=== PATIENT | female | born 1995 | race Caucasian/White ===

== ENCOUNTER 2017-03-17 13:59 | Emergency (ER) | payer MEDICAID, OTHER ==
[~2017-03-17] VITALS: Ht 157.5 cm; Wt 52.0 kg
[2017-03-17 14:03] VITALS: Ht 157.5 cm; Wt 52.0 kg
[2017-03-17] MEDS ORDERED: morphine 4 MG/ML VIAL IV STA (15:28)
[2017-03-17] MEDS ORDERED: ONDANSETRON 4 MG INJ IV STA (15:28)
[2017-03-17 16:22] LABS: ADD UMIC NO; URINE BILIRUBIN (Dip) NEGATIVE (NEGATIVE); URINE BLOOD (Dip) NEGATIVE (NEGATIVE); URINE COLOR LT. YELLOW (YELLOW); URINE GLUCOSE (Dip) NEGATIVE (NEGATIVE); URINE KETONES (Dip) NEGATIVE (NEGATIVE); URINE LEUKOCYTE ESTERASE (Dip) NEGATIVE (NEGATIVE); URINE NITRITE (Dip) NEGATIVE (NEGATIVE); URINE TOTAL PROTEIN (Dip) NEGATIVE (NEGATIVE); URINE UROBILINOGEN (Dip) 0.2 E.U./dL (0.1-1.0)
[2017-03-17 16:48] LABS: ADD SCAN DIFF NO
[2017-03-17 16:50] LABS: BASOPHILS % 0.9 % (0.0-2.0); EOSINOPHILS # 0.1 10^3/ul (0.0-0.5); EOSINOPHILS % 1.7 % (0.0-7.0); HEMATOCRIT 41.9 % (37.0-47.0); HEMOGLOBIN 14.7 g/dl (12.0-16.0); LYMPHOCYTES # 1.5 10^3/ul (0.8-2.9); LYMPHOCYTES % 42.4 % (18.0-55.0); MEAN CORPUSCULAR HEMOGLOBIN 28.7 pg (29.0-33.0); MEAN CORPUSCULAR HGB CONC 35.1 g/dl (32.0-37.0); MEAN CORPUSCULAR VOLUME 81.7 fl (72.0-104.0); MEAN PLATELET VOLUME 9.3 fl (7.4-10.4); MONOCYTE # 0.4 10^3/ul (0.3-0.9); NEUTROPHIL # 1.6 10^3/ul (1.6-7.5); NEUTROPHILS % 44.7 % (30.0-74.0); PLATELET COUNT 298 10^3/UL (140-415); RED BLOOD COUNT 5.13 10^6/ul (4.20-5.40); RED CELL DISTRIBUTION WIDTH 12.7 % (11.5-14.5); WHITE BLOOD COUNT 3.5 10^3/ul (4.8-10.8)
[2017-03-17 17:02] LABS: ALBUMIN 5.5 g/dl (3.3-4.9); POTASSIUM 3.5 mmol/L (3.5-5.1)
[2017-03-17 17:04] LABS: BILIRUBIN,INDIRECT 1.7 mg/dl (0-1.1); BILIRUBIN,TOTAL 1.7 mg/dl (0.2-1.3); CREATININE 0.65 mg/dl (0.44-1.00)
[2017-03-17 17:05] LABS: ALBUMIN/GLOBULIN RATIO 1.52; CALCIUM 10.4 mg/dl (8.4-10.2); TOTAL PROTEIN 9.1 g/dl (6.1-8.1)
[2017-03-17] MEDS ORDERED: SOD CHLORIDE 0.9% 100 ML ONE (17:27)
[2017-03-17] MEDS ORDERED: IOHEXOL 300MG/ML 150 ML BTL ONE (17:27)
--- NOTE | 2017-03-17 18:00 | RADRPT ---
PROCEDURE: CT abdomen and pelvis with IV contrast. CLINICAL INDICATION: Abdomen pain. TECHNIQUE: CT scan of the abdomen and pelvis was performed on a [address] scanner. The patient is scanned following the uncomplicated IV administration of 100 cc Omnipaque-300. Coronal and sagit donell reformatted images were obtained from the axial source images. Images were reviewed on a [employer] PACS workstation. Total radiation dose: Total CTDIvol: 4.7 mGy. Total DLP: 240 mGy-cm. One or more of the following dose reduction techniques were used: automated exposure control, adjustment of the mA and/or kV acc ording to patient size, or use of iterative reconstruction technique COMPARISON: None available. FINDINGS: CT abdomen: The lung bases are clear. The heart is not enlarged without pericardial thickening or effusion.. The liver is normal in size and density without focal mass or intrahepatic biliary dilatation. Ther e is mild splenomegaly. The stomach is partially collapsed but is grossly unremarkable. The pancreas as visualized is normal. The gallbladder is normal and there is no evidence of biliary dilatation. The adrenal glands are symmetrical and normal. There is 1.5 cm simple left renal cyst. The kidneys are symmetrically normal bilaterally. No renal calculus or obstructive uropathy or mass lesion is seen.. The aorta is normal in caliber. There is no retroperitoneal lymphadenopathy. The miriam hepatis reg ion is clear. The bowel and mesentery, as visualized, are equally unremarkable. CT pelvis: The appendix is normal in the right lower quadrant. The small bowel loops situated within the pelvi s are unremarkable. The female pelvic organs are normal. The pelvic sidewalls and inguinal regions are clear. No mass, lymphadenopathy or free fluid is seen. No acute inflammation seen. The urina ry bladder is normal. The surrounding osseous structures are unremarkable. No osteolytic or osteoblastic lesion is detect ed. IMPRESSION: 1. Mild splenomegaly. 2. 1.5 cm simple left renal cyst. 3. Unremarkable CT abdomen and pelvis with IV contrast. RPTAT: GG .Jorje Urena MD, MD Date Time Electronically viewed and signed by .Jorje Urena MD, on 03/17/2017 18:00 .Y/
[2017-03-17] MEDS ORDERED: PRED20TA PO (18:35)
--- NOTE | 2017-03-17 18:39 | ERD ---
ER Documentation Chief Complaint Date/Time DATE: 03/17/17 TIME: 18:37 Chief Complaint lt side abd pain x 2 weeks with nausea , worse x 2 days HPI This 22-year-old female presents with pain in her left lower abdomen and mid abdomen intermittently for last 2 weeks with nausea. Spine worse over the last 2 days. Describes the pain as being worse with intercourse. She denies any specific vaginal discharge, dysuria, fevers, vomiting. She does admit to having a sore throat intermittently for the last few months with possible swollen lymph nodes. ROS All systems reviewed and are negative except as per history of present illness. Medications Home Meds Active Scripts Prednisone* (Prednisone*) 20 Mg Tab, 40 MG PO DAILY for 5 Days, TAB Prov:RADHIKA STOUT MD 03/17/17 Allergies Allergies: Coded Allergies: dexamethasone (Verified Allergy, Mild, 03/17/17) PMhx/Soc History of Surgery: No Anesthesia Reaction: No Hx Neurological Disorder: No Hx Respiratory Disorders: No Hx Cardiac Disorders: No Hx Psychiatric Problems: No Hx Miscellaneous Medical Probl: No Hx Alcohol Use: Yes Hx Substance Use: No Hx Tobacco Use: No Physical Exam Vitals Vital Signs Date Time Temp Pulse Resp B/P Pulse Ox O2 Delivery O2 Flow Rate FiO2 03/17/17 14:03 98.1 85 18 122/84 98 Physical Exam Const: [] Alert, not ill-appearing. Head: Atraumatic Eyes: Normal Conjunctiva ENT: Normal External Ears, Nose and Mouth. Oropharynx grossly normal. Neck: Full range of motion..~ No meningismus. Possibly slight tenderness in anterior cervical without significant lymphadenitis. Resp: Clear to auscultation bilaterally Cardio: Regular rate and rhythm, no murmurs Abd: Soft, mildly tender in the mid and left abdomen without rebound and no masses. No tenderness at McBurney's point no Rush sign., non distended. Normal bowel sounds Skin: No petechiae or rashes Back: No midline or flank tenderness Ext: No cyanosis, or edema Neur: Awake and alert Psych: Normal Mood and Affect Result Diagram: 03/17/17 1530 03/17/17 1530 Results 24 hrs Laboratory Tests Test 03/17/17 15:25 03/17/17 15:30 Urine Color LT. YELLOW Urine Clarity CLEAR Urine pH 6.0 Urine Specific [place] 1.025 Urine Ketones NEGATIVE Urine Nitrite NEGATIVE Urine Bilirubin NEGATIVE Urine Urobilinogen 0.2 E.U./dL Urine Leukocyte Esterase NEGATIVE Urine Hemoglobin NEGATIVE Urine Glucose NEGATIVE% Urine Total Protein NEGATIVE White Blood Count 3.510^3/ul Red Blood Count 5.1310^6/ul Hemoglobin 14.7g/dl Hematocrit 41.9% Mean Corpuscular Volume 81.7fl Mean Corpuscular Hemoglobin 28.7pg Mean Corpuscular Hemoglobin Concent 35.1g/dl Red Cell Distribution Width 12.7% Platelet Count 46709^3/UL Mean Platelet Volume 9.3fl Neutrophils % 44.7% Lymphocytes % 42.4% Monocytes % 10.0% Eosinophils % 1.7% Basophils % 0.9% Nucleated Red Blood Cells % 0.0/100WBC Neutrophils # 1.610^3/ul Lymphocytes # 1.510^3/ul Monocytes # 0.410^3/ul Eosinophils # 0.110^3/ul Basophils # 0.010^3/ul Nucleated Red Blood Cells # 0.010^3/ul Sodium Level 144mmol/L Potassium Level 3.5mmol/L Chloride Level 102mmol/L Carbon Dioxide Level 27mmol/L Anion Gap 19 Blood Urea Nitrogen 10mg/dl Creatinine 0.65mg/dl Glucose Level 93mg/dl Calcium Level 10.4mg/dl Total Bilirubin 1.7mg/dl Direct Bilirubin 0.00mg/dl Indirect Bilirubin 1.7mg/dl Aspartate Amino Transf (AST/SGOT) 24IU/L Alanine Aminotransferase (ALT/SGPT) 28IU/L Alkaline Phosphatase 51IU/L Total Protein 9.1g/dl Albumin 5.5g/dl Globulin 3.60g/dl Albumin/Globulin Ratio 1.52 Lipase 64U/L Current Medications Medications (Trade) Dose Ordered Sig/Greta Route PRN Reason Start Time Stop Time Status Last Admin Dose Admin Morphine Sulfate (morphine) 4 mg ONCE STAT IV 03/17/17 15:28 03/17/17 15:30 DC 03/17/17 15:46 Ondansetron HCl (Zofran Inj) 4 mg ONCE STAT IV 03/17/17 15:28 03/17/17 15:30 DC 03/17/17 15:46 IV Flush 10 ml 10 ml STK-MED ONCE .ROUTE 03/17/17 17:27 03/17/17 17:28 DC 03/17/17 17:39 Sodium Chloride (NS) 100 ml @ ud STK-MED ONCE .ROUTE 03/17/17 17:27 03/17/17 17:28 DC 03/17/17 17:39 Iohexol (Omnipaque 300mg/ ml) 150 ml STK-MED ONCE .ROUTE 03/17/17 17:27 03/17/17 17:28 DC 03/17/17 17:39 Procedures/MDM CBC shows a white blood count of 3.5. CMP is normal although there is elevated indirect bilirubin. Urine is negative for infection, nitrites, glucose, leukocytes. Given the uncertain cause of pain a CT abdomen pelvis with IV contrast was performed which showed some mild splenomegaly left renal cyst. There is no evidence of appendicitis or acute abscess or obstruction. Pelvic exam was performed with the assistance of a hydrology technician. Patient has no cervical motion tenderness or adnexal masses. Urine was sent for gonorrhea chlamydia by patient request. Patient presents with abdominal pain with a history of sore throat lymphadenitis. Abdominal pain appears to be likely due to splenomegaly and additional symptoms suggest likely mononucleosis. Patient was discharged home a short course prednisone instruction to follow-up with primary doctor. She should otherwise return to ER for new or worsening symptoms. The patient was stable with no new complaints during the ER course. Clinically, there is no current evidence to suggest meningitis, sepsis, acute abdomen, pneumonia, acute coronary syndrome, pulmonary embolism, or any other emergent condition appearing to require further evaluation or hospitalization. The patient should certainly return for any new or worsening symptoms per the aftercare instructions. They should otherwise follow-up with her primary care doctor for reevaluation this week. Departure Diagnosis: Primary Impression: Abdominal pain Abdominal location: unspecified location Qualified Code: R10.9 - Abdominal pain, unspecified location Condition: Stable Patient Instructions: Abdominal Pain, Mononucleosis Additional Instructions: Examinations today suggests symptoms may be due from mononucleosis. STD results may return within the next week. Recheck for new or worsening symptoms with primary care doctor. RADHIKA STOUT MD Mar 17, 2017 18:39
== END 2017-03-17 19:15 | disposition home or self-care (01) ==
LOC: FTE 13:59
DX: R10.32 Left lower quadrant pain (principal); R11.0 Nausea
CPT/HCPCS: 36415; 74177; 80053; 81003; 83690; 85025; 86308; 87591; 96374; 96375; J2270; J2405; Q9967; Z7502; Z7610

== ENCOUNTER 2017-12-30 00:52 | Inpatient (IN) | END 2017-12-30 19:29 | disposition home or self-care (01) | DRG 607 ==